=== PATIENT | female | born 1970 | race Caucasian/White ===

== ENCOUNTER → 2017-06-07 | Emergency (ER) | payer BC ==
[~2017-06-07] VITALS: Ht 172.7 cm; Wt 85.3 kg
[~2017-06-07] MED LIST: ACETAMINOPHEN-1 EAC1 ORAL; Morphine Sulfate 4mg/ml Inj IM ONE; NORCO 5-325 TA1 EACH ORAL; SILVADENE CREAM50 GM TOP
[2017-06-08 00:14] VITALS: BP 110/77
--- NOTE | 2017-06-08 01:21 | Emergency Room Report ---
History of Present Illness General Chief Complaint: Lower Back Pain or Injury Source: Patient Present Illness HPI 46-year-old female, history of discectomy performed one day ago, presenting with pain to incision site. Patient states that she was given Percocet, however states that she is still had persistent pain. No fever no chills no diaphoresis. There is no purulent drainage from the site. Came because she wanted to know if it is infected or not Allergies: Coded Allergies: SULFAMETHOXAZOLE (Verified Allergy, Mild, 11/13/14) TRIMETHOPRIM (Verified Allergy, Mild, 11/13/14) Patient History Past Medical History: see triage record Past Surgical History: none Pertinent Family History: none Last Menstrual Period: has iud Now: No Reviewed Nursing Documentation: PMH: Agreed, PSxH: Agreed Nursing Documentation-PMH Past Medical History: No Stated History Review of Systems All Other Systems: negative except mentioned in HPI Physical Exam Vital Signs Date Time Temp Pulse Resp B/P (MAP) Pulse Ox O2 Delivery O2 Flow Rate FiO2 06/07/17 23:29 98.4 112 22 116/79 99 98.4 Sp02 EP Interpretation: reviewed, normal General Appearance: alert, GCS 15, non-toxic, mild distress, moderate distress Head: normocephalic, atraumatic Eyes: bilateral eye normal inspection, bilateral eye PERRL, bilateral eye EOMI ENT: normal ENT inspection, normal pharynx, normal voice, moist mucus membranes Neck: normal inspection, full range of motion, supple Respiratory: normal inspection, lungs clear, normal breath sounds, no respiratory distress, no retraction, no wheezing, speaking full sentences, chest symmetrical Cardiovascular #1: normal inspection, regular rate, rhythm, no edema, normal capillary refill Cardiovascular #2: 2+ radial (R), 2+ radial (L) Gastrointestinal: normal inspection, non tender, soft, non-distended, no guarding Musculoskeletal: other - Left lower back with surgical wound, healing well, dark postsurgical ecchymosis noted, no signs of infection, no purulent drainage Neurologic: normal inspection, alert, oriented x3, responsive, motor strength/ tone normal, sensory intact, normal gait, speech normal Psychiatric: normal inspection, judgement/insight normal, memory normal Skin: normal inspection, normal color, no rash, warm/dry, well hydrated, normal turgor Medical Decision Making Diagnostic Impression: Primary Impression: Postoperative back pain ER Course 46-year-old female, recent discectomy done 1 day ago, presenting with pain to the site DDX: Incision site does not appear to be infected at this time Neurologically intact Plan: Pain control ER course: Patient has remained stable during ED stay. Ambulatory nontoxic Disposition: Patient is to be discharged to home. Patient is instructed to follow up with their surgeon in 2 days without fail Strict return precautions discussed with patient such as fever, chills, worsening/severe pain, purulent drainage from site, numbness or tingling of legs , which may indicate severe illness. Patient verbalizes understanding and agrees with plan. Please note that this Emergency Department Report was dictated using [id number] radiology technologist technology software, occasionally this can lead to erroneous entry secondary to interpretation by the dictation equipment Last Vital Signs Date Time Temp Pulse Resp B/P (MAP) Pulse Ox O2 Delivery O2 Flow Rate FiO2 06/08/17 00:14 100 20 110/77 99 06/08/17 00:14 98.4 98.4 Disposition: HOME, SELF-CARE Condition: Improved Additional Instructions: PLEASE SEE YOUR SURGEON FOR FOLLOW UP IN 2-3 DAYS Please return to the emergency room if you're experiencing fever, chills, purulent drainage or worsening redness of your incision site, numbness or tingling of her legs Cari De Leon M.D. Jun 08, 2017 01:21
== END | disposition home or self-care (01) ==
LOC: EMR 23:45
DX: G89.18 Other acute postprocedural pain (principal); M54.5 Low back pain; Z88.2 Allergy status to sulfonamides; Z88.1 Allergy status to other antibiotic agents
CPT/HCPCS: 96372; 99283